=== PATIENT | female | born 1970 | race Caucasian/White ===

== ENCOUNTER 2021-05-09 04:59 | Emergency (ER) | payer BC ==
[~2021-05-09] VITALS: Ht 167.6 cm; Wt 63.5 kg
--- NOTE | 2021-05-09 05:09 | NUR ---
Dr. Alfonso at bedside for MSE.
[2021-05-09] MEDS ORDERED: FLUORESCEIN SODIUM 1 MG STRIP ONE (05:15)
[2021-05-09] MEDS ORDERED: TETRACAINE HCL 0.5% OPHT DROP 2 ML BOTTLE ONE (05:24)
[2021-05-09] MEDS ORDERED: TDAP DIPH,PERTUSS,TET VAC/PF 0.5 ML DISP.SYRIN IM ONE ×2 (05:31→05:45)
[2021-05-09] MEDS ORDERED: OXYC-128 PO (05:33)
[2021-05-09] MEDS ORDERED: SULF15DR6 OP (05:33)
[2021-05-09] MEDS ORDERED: OXYCODONE/APAP 5-325 MG TABLET ONE (05:44)
[2021-05-09 05:45] VITALS: BP 133/99
[2021-05-09] MEDS ORDERED: OXYCODONE/APAP 5-325 MG TABLET PO ONE (05:45)
[2021-05-09] MEDS ORDERED: TETRACAINE HCL 0.5% OPHT DROP 2 ML BOTTLE OP ONE (05:45)
--- NOTE | 2021-05-09 05:45 | NUR ---
Patient discharged to home in stable condition. Written and verbal after care instructions given. Patient verbalizes understanding of instructions. Stressed follow up or return to ER for worsening s/s. Patient out of ER with steady gait, no acute signs of distress, VSS, all belongings taken, instructed not to drive, to be driven home via private vehicle by .
== END 2021-05-09 05:46 | disposition home or self-care (01) ==
LOC: ER 05:08
DX: H18.821 Corneal disorder due to contact lens, right eye (principal); Z88.1 Allergy status to other antibiotic agents
CPT/HCPCS: 90715; A4663

== ENCOUNTER 2021-05-09 18:52 | Emergency (ER) | payer BC ==
[~2021-05-09] VITALS: Ht 167.6 cm; Wt 63.5 kg
[~2021-05-09 18:52] MED LIST: OXYC-128 PO; SULF15DR6 OP
[2021-05-09] MEDS ORDERED: TETRACAINE HCL 0.5% OPHT DROP 2 ML BOTTLE OP ONE (19:00)
[2021-05-09] MEDS ORDERED: TETRACAINE HCL 0.5% OPHT DROP 2 ML BOTTLE ONE (19:03)
[2021-05-09] MEDS ORDERED: FLUORESCEIN SODIUM 1 MG STRIP ONE (19:03)
--- NOTE | 2021-05-09 19:10 | NUR ---
Dr. Alfonso at bedside for MSE.
--- NOTE | 2021-05-09 19:36 | NUR ---
Patient discharged to home in stable condition. Written and verbal after care instructions given. Patient verbalizes understanding of instructions. Stressed follow up or return to ER for worsening s/s. Patient out of ER with steady gait, no acute signs of distress, VSS, all belongings taken.
[2021-05-09 19:37] VITALS: BP 141/92
== END 2021-05-09 19:41 | disposition home or self-care (01) ==
LOC: ER 18:53
DX: H10.11 Acute atopic conjunctivitis, right eye (principal); R03.0 Elevated blood-pressure reading, without diagnosis of hypertension
CPT/HCPCS: A4663